=== PATIENT | male | born 1965 | race Caucasian/White ===

== ENCOUNTER 2024-05-30 08:47 | Outpatient (CLI) | payer MEDICARE, SELFPAY ==
--- NOTE | 2024-05-30 09:45 | MR_ITS ---
WS: [id number] MRI BRAIN WITHOUT CONTRAST HISTORY: R51.9 - Headache, unspecified COMPARISON: None available. TECHNIQUE: Diffusion imaging, multiplanar T1, T2 and FLAIR imaging obtained. No evidence for acute infarct or hemorrhage. Snyder-white matter differentiation is normal. No remote or acute infarcts are volume loss. Ventricles and extra-axial spaces are normal. No inferior displacement of cerebellar tonsils. The sella turcica and pituitary gland are unremarkabl e. Dural venous sinuses and round valley of [place] demonstrate no abnormality on this unenhanced studies. Paranasal sinuses: Small mucous retention cysts in the maxillary sinuses. No air-fluid levels. Mastoid air cells: Normal. Calvarium and scalp: Intact. MR/MR head wo con* [id number] IMPRESSION: 1. No acute or remote infarcts. No volume loss. 2. Normal hippocampal formations. 3. Normal ventricles.
== END 2024-05-30 08:48 | disposition home or self-care (01) ==
LOC: RAD 08:49
PROVIDERS: Visit Provider Nurse Practitioner
DX: R51.9 Headache, unspecified (principal)
CPT/HCPCS: 70551

== ENCOUNTER 2025-08-30 20:52 | Emergency (ER) | payer MEDICARE, SELFPAY ==
--- OUTSIDE RECORDS SUMMARY | 2024-08-11 03:00 | XMS_ITS ---
Author Organization [facility] Address [address] [place] [address] Support Name Relationship Address , Leah Khan Emergency Contact Unkn own Unavailable Leopoldo Camacho Guarantor Unknown [phone] Care Team Providers Care Financial Retirement Plan Specialist Name Role Phone Clem Downey Primary Care Provider Unavailabl e Migration, Provider Unavailable Unavailable REASON FOR VISIT EMR-Emre Encounters Encounter Location Date Provider Diagnosis Migrated_Facility 0 0 08/11/2024 Provider Migration Plan Of Treatment No Information Progress Notes * Leopoldo CAMACHO ADOB:[birth year] (60 yo M)Acc No.[id number]:08/11/2024 Patient: Leopoldo FRANCO :1965 A ge:59 Y S ex:Male Address:[facility] [place], [address] Subjective: * Chief Complaints: * E MR-Emre * * Date:
--- OUTSIDE RECORDS SUMMARY | 2024-08-12 03:00 | XMS_ITS ---
Author Organization [facility] Address [address] [place] [address] Support Name Relationship Address , Leah Khan Emergency Contact Unkn own Unavailable Leopoldo Camacho Guarantor Unknown [phone] Care Team Providers Care Psych Sales Specialist Name Role Phone Clem Downey Primary Care Provider Unavailabl e Migration, Provider Unavailable Unavailable Allergies Allergen (clinical drug ingredient) Drug/Non Drug Allergy documented on EMR Reaction Allergy Type Onset Date Status Substance with penicillin structure and antibacterial mechanism of action (substance) Penicillins Swelling in Throat Drug Allergy Active REASON FOR VISIT [place] [place] Medication SIG (Take, Route, Frequency, Duration) Notes Start Date End Date Status Morphine *Reorder from Pr dispan for eRx and Interaction Alerts* Active Social History Social History Additional Details Category Social Info Options Details Migrated Social History Migrated Social History Alcoholic beverages? - No, Currently on disability? - Yes, Drug or substance abuse? - No, exposure to toxins/poisonous substances at work - No, Involved in any legal proceedings or lawsuits? - Yes, Marital Status - , Nonprescription drug use? - No, Participation in detoxification or rehabilitation - No, Smoking - 1/2 PPD, Smoking status (MU) - Current every day smoker, Working currently? - No Encounters Encounter Location Date Provider Diagnosis Migrated_Facility 0 0 08/12/2024 Provider Migration Plan Of Treatment No Information Progress Notes * Leopoldo CAMACHO ADOB:[birth year] (60 yo M)Acc No.[id number]:08/12/2024 Patient: Leopoldo FRANCO :1965 A ge:59 Y S ex:Male Address:[address] [place] [address] [place], [address] Subjective: * Chief Complaints: * E MR-Emre * Surgical History: Back surgery Knee replacement surgery Knee Surgery pain pump insertion * Social History: M igrated Social History: M igrated Social History: Alcoholic beverages? - No, C urrently on disability? - Yes, D rug or substance abuse? - No, e xposure to toxins/poisonous substances at work - No, I nvolved in any legal proceedings or lawsuits? - Yes, M arital Status - , N onprescription drug use? - No, P articipation in detoxification or rehabilitation - No, S moking - 1/2 PPD, S moking status (MU) - Current every day smoker, W orking currently? - No. * Medications: T akingMorphine , Notes to Pharmacist: *Reorder from Medispan for eRx and Interaction Alerts*Taking Morphine , Notes to Pharmacist: *Reorder from Medispan for eRx and Interaction Alerts* * Allergies: P enicillins: Swelling in Throat - Allergy * * Date:
[2025-08-30 20:53] VITALS: BP 142/90; PULSE 99; RESP 20; TEMP 36.4; O2SAT 99
--- OUTSIDE RECORDS SUMMARY | 2025-08-30 20:55 | XMS_ITS | Clinical Summary ---
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
--- OUTSIDE RECORDS SUMMARY | 2025-08-30 20:55 | XMS_ITS | Patient Health Record ---
Author Organization [facility] Address [address] [place] [address] Support Name Relationship Address , Leah Khan Emergency Contact Unkn own Unavailable Leopoldo Camacho Guarantor Unknown [phone] Care Team Providers Care Gas Engine Operator Name Role Phone Clem Downey Primary Care Provider Unavailabl e Reason For Referral No Information Medications Medication SIG (Take, Route, Frequency, Duration) Notes Start Date End Date Status Morphine *Reorder from Me dispan for eRx and Interaction Alerts* Active [...] every day smoker, Working currently? - No Plan Of Treatment No Information Medical (General) History Surgical History Surgery Date(Month/Year) Back surgery Knee replacement surgery pain pump insertion Knee Surgery
--- OUTSIDE RECORDS SUMMARY | 2025-08-30 20:55 | XMS_ITS | Patient Health Record ---
Author Organization [facility] Address [address] [place] [address] Care Team Providers Care Bed Maker Name Role Phone Roshan Wiggins Unavailable [phone] Reason For Referral No Information Medications Medication SIG (Take, Route, Frequency, Duration) Notes Start Date End Date Status MORPHINE SULFATE (PF) (IV) *please review for potential update for e-prescription and drug interaction check* Active Problems Problem Type SNOMED Code ICD Code Onset Dates Problem Status W/U Status Risk Notes Problem Obesity (109351527) Obesity, unspecified (E66.9) 0 Active confirmed Problem Osteoarthritis of knee (195238431) Unilateral primary osteoarthritis, left knee (M17.12) 0 Active confirmed Problem Knee joint effusion (922526769) Effusion, left knee (M25.462) 0 Active confirmed Problem Pain of left knee joint (finding) (481397751139079) Pain in left knee (M25.562) 0 Active confirmed Plan Of Treatment No Information Medical (General) History Surgical History Surgery Date(Month/Year) Knee Replacement PAST SurgHX Till
[2025-08-30 21:52] VITALS: BP 134/73; PULSE 91; O2SAT 91
[2025-08-30 21:57] LABS: Hematocrit 46.8 % (37-53); Hemoglobin 16.00 g/dL (11.27-16.99); Mean Corpuscular HGB Conc 34.2 g/dL (30-55); Mean Corpuscular Hemoglobin 32.5 pg (27-33); Mean Corpuscular Volume 94.9 fl (82-101); Nucleated Red Blood Cells % 0 %; Platelet Count 226 10^3/cmm (157-399); Red Blood Count 4.93 10^6/uL (3.85-5.65); White Blood Count 9.97 10^3/uL (3.29-11.43)
[2025-08-30 22:17] LABS: Alanine Aminotransferase 55 U/L (0-41); Albumin Level 3.9 g/dL (3.5-5.2); Alkaline Phosphatase 95 U/L (40-130); Anion Gap 16.1 (5-19); Aspartate Amino Transferase 56 U/L (0-40); Blood Urea Nitrogen 9 mg/dL (8-23); Calcium 8.3 mg/dL (8.5-10.5); Carbon Dioxide 26 mmol/L (22-29); Chloride 102 mmol/L (98-107); Globulin 2.7 g/dL (1.3-4.6); Glucose 124 mg/dL (65-115); Osmolality Calculated 290 mOsm/kg (285-295); Potassium 4.1 mmol/L (3.5-5.1); Sodium 140 mmol/L (136-145); Total Protein 6.6 g/dL (6.6-8.7)
--- NOTE | 2025-08-30 22:32 | CTR_ITS ---
PROCEDURE INFORMATION: Exam: CT Abdomen And Pelvis Without Contrast Exam date and time: 08/30/2025 10:42 PM Age: 60 years old Clinical indication: Abdominal pain; C/O left flank/low back pain; Additional info: Left flank pain TECHNIQUE: Imaging protocol: Computed tomography of the abdomen and pelvis without contrast. Radiation optimization: All CT scans at this facility use at least one of these dose optimization techniques: automated exposure control; mA and/or kV adjustment per patient size (includes targeted exams where dose is matched to clinical indication); or iterative reconstruction. COMPARISON: No relevant prior studies available. RADIATION DOSE METRICS: Total DLP (mGy-cm): 1017.35 FINDINGS: Lungs: Ground-glass airspace consolidation in the right lower lobe, concerning for pneumonia. Liver: Hepatic steatosis. Gallbladder and biliary ducts: Mild layering gallbladder sludge. Pancreas: Normal. No ductal dilation. Spleen: Normal. No splenomegaly. Adrenal glands: Normal. No mass. Kidneys and ureters: Obstructing 4 mm left UVJ stone. Mild hydronephrosis and perinephric stranding of the left kidney. Stomach and bowel: Unremarkable. No obstruction. No mucosal thickening. Appendix: No evidence of appendicitis. Intraperitoneal space: Unremarkable. No free air. No significant fluid collection. Vasculature: Atherosclerotic changes of the aorta. Lymph nodes: Unremarkable. No enlarged lymph nodes. Urinary bladder: Unremarkable as visualized. Reproductive: Unremarkable as visualized. Bones/joints: Degenerative changes of the spine. Soft tissues: Fat containing bilateral inguinal hernias. CT/CT kidney stone [id number] IMPRESSION: 1. Obstructing 4 mm left UVJ stone. Mild hydronephrosis and perinephric stranding of the left kidney. 2. Ground-glass airspace consolidation in the right lower lobe, concerning for pneumonia. 3. Hepatic steatosis. 4. Mild layering gallbladder sludge.
[2025-08-30 22:52] LABS: Alcohol Level 232 mg/dL (0-10)
[2025-08-30] MEDS: HYDROmorphone 0.5 MG/0.5 ML INJ 1 MG IVP (23:11)
[2025-08-30] MEDS: ondansetron 2 mg/ML SDV 2 mL 4 MG IVP (23:11)
[2025-08-30 23:17] VITALS: BP 134/65; PULSE 87; O2SAT 92
[2025-08-30 23:20] LABS: Glucose Urine UA Negative (Normal); Nitrate Urine Negative (Negative); Specific Gravity, Urine 1.008 (1.005-1.030)
[2025-08-30 23:25] LABS: Add Urine Microscopic? YES
--- NOTE | 2025-08-30 23:34 | W.ED.ABDPA2 ---
HPI - Abdominal Pain General: Chief Complaint: Abdominal Pain Stated Complaint: BACK PAIN Time Seen by Provider: 08/30/25 22:04 History of Present Illness: Patient is a 60-year-old male presenting with left flank pain that has been recurring. He reports that the pain comes and goes, sometimes being absent for 2-3 days before returning. This morning, he woke up feeling the pain coming on again and experienced associated vomiting. The pain is localized to the left flank area, specifically in the region where he previously had a morphine pump implanted. The patient denies fever, dysuria, or hematuria. He expresses concern about his ability to care for his three grandchildren due to this recurring pain. Related Data Previous Rx's ?Medication ?Instructions ?Recorded buspirone 5 mg tablet 5 mg PO BID #60 tabs 12/10/24 ketorolac 10 mg tablet 10 mg PO TID PRN pain #10 tabs 08/30/25 levofloxacin 750 mg tablet 750 mg PO DAILY 7 days #7 tabs 08/30/25 oxycodone-acetaminophen 7.5 mg-325 1 tab PO Q6H PRN pain #10 tabs 08/30/25 mg tablet (Percocet) tamsulosin 0.4 mg capsule (Flomax) 0.4 mg PO DAILY #10 caps 08/30/25 Allergies Allergy/AdvReac Type Severity Reaction Status Date / Time Penicillins Allergy Severe ALGY-Swell Verified 12/10/24 08:53 Lip/Tongue/Throat REPLACED BY [facility] PFSH: Social History Smoking and tobacco/nicotine status: current every day tobacco/nicotine user Physical Exam Const: COMMON NORMALS: no acute distress GENERAL APPEARANCE: cooperative and odor of alcohol detected; not frail appearing HENMT: COMMON NORMALS: normocephalic, atraumatic and Normal external nose present HEAD & SCALP: normocephalic and atraumatic FACE & SINUS: normal facial exam and face symmetric NOSE: Normal external nose present Eye: COMMON NORMALS: Equal, round and reactive pupils present and EOMs intact bilaterally PUPIL: Yes Equal, round and reactive pupils present Neck/C-Spine: GENERAL: Yes trachea midline Chest: CHEST: Yes Symmetrical chest wall rise Resp: COMMON NORMALS: normal respiratory effort, No retractions, No use of accessory muscles and clear to auscultation bilaterally AUSCULTATION: clear to auscultation bilaterally Cardio: COMMON NORMALS: regular rate and regular rhythm RATE: regular rate RHYTHM: regular rhythm GI: COMMON NORMALS: Normal to inspection, nondistended, normoactive bowel sounds present : BLADDER/KIDNEY EXAM: Yes CVA tenderness on the left Back/Pelvis: GENERAL BACK: Yes CVA tenderness Extremity: COMMON NORMALS: no pedal edema Neuro: MICHI COMA SCALE: document GCS findings Michi coma scale eye opening: Spontaneous [place] coma scale verbal response: Orientated [place] coma scale motor response: Obey commands [place] coma scale total score: 15 SENSORY EXAM: Yes extremities (intact) Psych: COMMON NORMALS: speech normal SPEECH: Yes normal speech Skin: COMMON NORMALS: no rashes or lesions noted GENERAL SKIN EXAM: no rashes or lesions noted Course Vital Signs: Vital signs: Vital Signs Temperature 97.5 F L 08/30/25 20:53 Pulse Rate 83 08/31/25 00:01 Respiratory Rate 20 H 08/30/25 20:53 Blood Pressure 116/50 08/31/25 00:01 Pulse Oximetry 90 08/31/25 00:01 Oxygen Delivery Me thod Room Air 08/30/25 20:53 MDM - Abdominal Pain Medical Decision Making Vitals are stable. CBC is normal. Creatinine is 1.4. Otherwise BMP is not remarkable. Urinalysis shows no evidence of infection. The patient's alcohol is 232. He has a ground glass consolidation of the right lower lobe concerning for pneumonia on CT of the belly. He also has an obstructing 4 mm left UVJ stone likely causing his symptoms. He has mild hydronephrosis. He should be able to pass the stone. He will be placed on Flomax. He will be given a short course of oxycodone, and he will be given Levaquin to cover his pneumonia. He was counseled on his diagnosis. He stable for discharge. He was referred to urology as an outpatient if needed. He is encouraged not to drink alcohol while on pain medication. He will return for new or worsening symptoms. Lab Data 08/30/25 21:47 08/30/25 21:47 Labs/Radiology: Radiology Impressions Abdomen/Pelvis CT 08/30/25 22:32 IMPRESSION: 1. Obstructing 4 mm left UVJ stone. Mild hydronephrosis and perinephric stranding of the left kidney. 2. Ground-glass airspace consolidation in the right lower lobe, concerning for pneumonia. 3. Hepatic steatosis. 4. Mild layering gallbladder sludge. Laboratory Results WBC 9.97 10^3/uL (3.29-11.43) 08/30/25 21:47 RBC 4.93 10^6/uL (3.85-5.65) 08/30/25 21:47 Hgb 16.00 g/dL (11.27-16.99) 08/30/25 21:47 Hct 46.8 % (37-53) 08/30/25 21:47 MCV 94.9 fl (82-101) 08/30/25 21:47 MCH 32.5 pg (27-33) 08/30/25 21:47 MCHC 34.2 g/dL (30-55) 08/30/25 21:47 RDW 13.1 % (12.1-15.1) 08/30/25 21:47 Plt Count 226 10^3/cmm (157-399) 08/30/25 21:47 MPV 9.6 fL (7.4-10.4) 08/30/25 21:47 Neut % (Auto) 71.7 % 08/30/25 21:47 Lymph % (Auto) 19.3 % 08/30/25 21:47 Brooks % (Auto) 8.1 % 08/30/25 21:47 Eos % (Auto) 0.1 % 08/30/25 21:47 Baso % (Auto) 0.4 % 08/30/25 21:47 Neut # (Auto) 7.15 10^3/uL (1.8-7.7) 08/30/25 21:47 Lymph # (Auto) 1.9 10^3/uL (0.8-4.8) 08/30/25 21:47 Brooks # (Auto) 0.8 10^3/uL (0.2-0.9) 08/30/25 21:47 Eos # (Auto) 0.0 10^3/uL (0.0-0.8) 08/30/25 21:47 Baso # (Auto) 0.0 10^3/uL (0.0-0.1) 08/30/25 21:47 Nucleated RBC % (auto) 0 % 08/30/25 21:47 Nucleated RBCs # 0.0 /100WBC 08/30/25 21:47 Sodium 140 mmol/L (136-145) 08/30/25 21:47 Potassium 4.1 mmol/L (3.5-5.1) 08/30/25 21:47 Chloride 102 mmol/L (98-107) 08/30/25 21:47 Carbon Dioxide 26 mmol/L (22-29) 08/30/25 21:47 Anion Gap 16.1 (5-19) 08/30/25 21:47 BUN 9 mg/dL (8-23) 08/30/25 21:47 Creatinine 1.4 mg/dL (0.7-1.2) H 08/30/25 21:47 GFR Calculation 51.7 mL/min (90-130) L 08/30/25 21:47 Glucose 124 mg/dL (65-115) H 08/30/25 21:47 Calculated Osmolality 290 mOsm/kg (285-295) 08/30/25 21:47 Calcium 8.3 mg/dL (8.5-10.5) L 08/30/25 21:47 Total Bilirubin 0.4 mg/dL (0.15-1.2) 08/30/25 21:47 AST 56 U/L (0-40) H 08/30/25 21:47 ALT 55 U/L (0-41) H 08/30/25 21:47 Alkaline Phosphatase 95 U/L (40-130) 08/30/25 21:47 Total Protein 6.6 g/dL (6.6-8.7) 08/30/25 21:47 Albumin 3.9 g/dL (3.5-5.2) 08/30/25 21:47 Globulin 2.7 g/dL (1.3-4.6) 08/30/25 21:47 Urine Color Yellow (Yellow) 08/30/25 23:00 Urine Appearance Clear (CLEAR) 08/30/25 23:00 Urine pH 5.5 (5-7) 08/30/25 23:00 Ur Specific Tennyson 1.008 (1.005-1.030) 08/30/25 23:00 Urine Protein Negative (Negative) 08/30/25 23:00 Urine Glucose (UA) Negative (Normal) 08/30/25 23:00 Urine Ketones Negative (Negative) 08/30/25 23:00 Urine Blood 1+ (Negative) A 08/30/25 23:00 Urine Nitrate Negative (Negative) 08/30/25 23:00 Urine Bilirubin Negative (Negative) 08/30/25 23:00 Urine Urobilinogen 1.0 mg/dL (Negative) 08/30/25 23:00 Ur Leukocyte Esterase Negative (Negative) 08/30/25 23:00 Urine RBC 0-2 /hpf (0-2) 08/30/25 23:00 Urine WBC 0-5 /hpf (0-5) 08/30/25 23:00 Ur Squamous Epith Cells 0-5 /hpf (0-5) 08/30/25 23:00 Urine Bacteria None seen /hpf (NONE) 08/30/25 23:00 Hyaline Casts 0.40 /lpf 08/30/25 23:00 Ethyl Alcohol 232 mg/dL (0-10) H 08/30/25 21:47 All radiology interpretation(s) finalized by discharge Discharge Plan Discharge Patient Disposition: Home Clinical Impression: Ureterolithiasis Pneumonia Qualifiers: Laterality: right Lung location: lower lobe of lung Condition: Stable Prescriptions: New ketorolac 10 mg tablet 10 mg PO TID PRN (Reason: pain) Qty: 10 0RF oxycodone-acetaminophen [Percocet] 7.5-325 mg tablet 1 tab PO Q6H PRN (Reason: pain) Qty: 10 0RF tamsulosin [Flomax] 0.4 mg capsule 0.4 mg PO DAILY Qty: 10 0RF levofloxacin 750 mg tablet 750 mg PO DAILY 7 Days Qty: 7 0RF No Action buspirone 5 mg tablet 5 mg PO BID Qty: 60 1RF Discharge Orders: Discharge ED (Routine); Ordered 08/30/25 Ordered By: Edwar Wahl Referrals: Gilson Freeman [Referring, Urology] - 4-7 days Ashlie Doyle FNP [Primary Care Provider, Nurse Practitioner] Patient Instructions: Kidney Stones (ED), Abdominal Pain (ED), Pneumonia (ED), Opioid Safety, Pain Management, Patient Portal & Lisa Instructions Activity Restrictions/Additional Instructions: Antibiotics as directed for your pneumonia. Return for worsening shortness of breath, fever despite 3-4 doses of antibiotics, any other concerning symptoms. Medication as directed. Kidney stone. Take Flomax daily, as it can help you pass the stone. Return for worsening pain despite treatment, fever, inability to urinate, mental status changes, any other concerns. Avoid alcohol consumption, especially while on pain medication. Print Language: Yoruba Coding Level of Care Code ED Supervisor Lead Burning for Kole Albert
[2025-08-31] MEDS: oxyCODONE-APAP 5-325 mg Tablet 2 TAB PO
--- NOTE | 2025-08-31 | PC.NURSE ---
Sent 2 oxycodone-acetaminophen 5/325 mg pills home with pt for use for pain at home.
[2025-08-31 00:01] VITALS: BP 116/50; PULSE 83; O2SAT 90
== END 2025-08-31 00:02 | disposition home or self-care (01) ==
PROVIDERS: Emergency Provider Emergency Medicine; PCP Nurse Practitioner
DX: N20.1 Calculus of ureter (principal); J18.9 Pneumonia, unspecified organism; Z72.0 Tobacco use
CPT/HCPCS: 36415; 74176; 80053; 80307; 81001; 85025; 96374; 96375; 99285; J1171; J2405; J7030; J9999

== ENCOUNTER → 2025-09-04 11:08 | Outpatient (BNVA) | payer MEDICARE, SELFPAY | PROVIDERS: PCP Nurse Practitioner; Visit Provider Nurse Practitioner | DX: N20.0 Calculus of kidney (principal); J18.9 Pneumonia, unspecified organism | CPT/HCPCS: 71046; 81000 ==